=== PATIENT | female | born 1985 | race American Indian/Alaskan Native ===

== ENCOUNTER 2019-01-20 19:52 | Emergency (ER) | payer SELFPAY ==
[2019-01-20 19:57] VITALS: BP 150/78
--- NOTE | 2019-01-20 20:02 | Emergency Department Report ---
Blank Doc - Documentation Documentation: This is a 33-year-old female that presents with nausea with vomiting. Stated had a positive test today. Deneis any vaginal bleeding or pelvic pain. This initial assessment/diagnostic orders/clinical plan/treatment(s) is/are subject to change based on patient's health status, clinical progression and re- assessment by fellow clinical providers in the ED. Further treatment and workup at subsequent clinical providers discretion. Patient/guardians urged not to guy pe from the ED as their condition may be serious if not clinically assessed and managed. Initial orders include: 1- Patient sent to [facility] for further evaluation and treatment 2- labs 3- UA
[2019-01-20 20:42] LABS: BUN/Creatinine Ratio 10; Blood Urea Nitrogen 6 mg/dL (7-17); Calcium 9.2 mg/dL (8.4-10.2); Hemolysis Index 10
[2019-01-20 20:43] LABS: Basophils # (Auto) 0.1 K/mm3 (0.0-0.1); Basophils % (Auto) 0.8 % (0.0-1.8); Eosinophils # (Auto) 0.1 K/mm3 (0.0-0.4); Eosinophils % (Auto) 0.9 % (0.0-4.3); Hematocrit 33.3 % (30.3-42.9); Hemoglobin 11.3 gm/dl (10.1-14.3); Lymphocytes # (Auto) 2.3 K/mm3 (1.2-5.4); Lymphocytes % (Auto) 24.1 % (13.4-35.0); Mean Corpuscular HGB Conc 34 % (30-34); Mean Corpuscular Volume 85 fl (79-97); Monocytes # (Auto) 0.8 K/mm3 (0.0-0.8); Monocytes % (Auto) 8.7 % (0.0-7.3); Platelet Count 288 K/mm3 (140-440); Red Blood Count 3.93 M/mm3 (3.65-5.03); Red Cell Distribution Width 15.3 % (13.2-15.2)
[2019-01-20 21:59] LABS: Bilirubin,Urine NEG (Negative); Blood,Urine NEG (Negative); Color,Urine Yellow (Yellow); Protein,Urine <15 mg/dL mg/dL (Negative); Urobilinogen,Urine < 2.0 mg/dL (<2.0)
[2019-01-20] MEDS ORDERED: NACL 0.9% 1000 ML 1,000 ML IV ONE (23:49)
[2019-01-20] MEDS ORDERED: REGLAN IV ONE (23:49)
[2019-01-20] MEDS ORDERED: TYLENOL PO ONE (23:49)
[2019-01-21] MEDS ORDERED: BENADRYL IV ONE (01:19)
[2019-01-21] MEDS ORDERED: BENADRYL ONE (01:21)
--- NOTE | 2019-01-21 01:41 | Ultrasound Report ---
PROCEDURE: US OB <= 14 WEEKS FETUS TECHNIQUE: Real-time transabdominal sonography of the uterus, placenta, amniotic fluid, adnexa, and fetus was performed with image documentation. Measurements were obtained to determine age/size. M-mode Doppler was used to document heartbeat. ADDITIONAL GESTATION: None. HISTORY: pelvic pain COMPARISONS: None . FINDINGS: CRL: 32.7 mm, which corresponds to a gestational age of: 10 weeks, 1 days. Yolk Sac: Appropriate for gestational age. . Embryonic Cardiac Activity: 176 bpm . Gestational Sac: Size and shape are appropriate for gestational age Placenta: Normal Amniotic fluid: Appropriate for gestational age. Cervix: Normal. Right Ovary: Normal . Left Ovary: Normal . Estimated delivery date: 08/18/2019 . Uterus and adnexa: Normal. IMPRESSION: Single live intrauterine gestation at approximately 10 weeks 1 day . EDC by US 08/18/2019 . This document is electronically signed by Jayy Graham MD., January 21 2019 01:39:14 AM ET
--- NOTE | 2019-01-21 01:41 | Ultrasound Report ---
PROCEDURE: US OB TRANSVAGINAL TECHNIQUE: Real-time transvaginal sonography of the uterus, placenta, amniotic fluid, adnexa, and fe tus was performed with image documentation. Measurements were obtained to determine age/size. M -mode Doppler was used to document heartbeat. ADDITIONAL GESTATION: None. HISTORY: pelvic pain COMPARISONS: None . FINDINGS: CRL: 32.7 mm, which corresponds to a gestational age of: 10 weeks, 1 days. Yolk Sac: Appropriate for gestational age. . Embryonic Cardiac Activity: 176 bpm . Gestational Sac: Size and shape are appropriate for gestational age Placenta: Normal Amniotic fluid: Appropriate for gestational age. Cervix: Normal. Right Ovary: Normal . Left Ovary: Normal . Estimated delivery date: 08/18/2019 . Uterus and adnexa: Normal. IMPRESSION: Single live intrauterine gestation at approximately 10 weeks 1 day . EDC by US 08/18/2019 . This document is electronically signed by Jayy Graham MD., January 21 2019 01:39:43 AM ET
--- NOTE | 2019-01-21 02:14 | Emergency Department Report ---
ED N/V/D HPI - General Chief complaint: Nausea/Vomiting/Diarrhea Stated complaint: VOMITTING WITH BILE Time Seen by Provider: 01/20/19 20:00 Source: patient Mode of arrival: Ambulatory Limitations: No Limitations - History of Present Illness Initial comments: Patient is a A0 33-year-old, Female with No past Medical History and has gestational period is unknown presents to the ED with complaint of acute onset persistent intractable nausea and vomiting with intermittent lower abdominal pain for the last 3 weeks, worse in the last 2 days. Patient states that she has not been able to keep anything down the last 2 days. Patient denies vaginal bleeding, dysuria, urinary frequency and urgency, diarrhea, dizziness, fever, chills, no back pain, dizziness, headache, sore throat, chest pain or shortness of breath. MD complaint: nausea, vomiting, abdominal pain -: Gradual, week(s) (3) Description of Vomiting: food contents, watery Associated Abdominal Pain: No Location: diffuse Radiation: none Severity: severe Pain Scale: 7 Quality: cramping, aching Consistency: intermittent Improves with: none Worsens with: vomiting Associated Symptoms: denies other symptoms, malaise, nausea/vomiting. denies: myalgias, cough, diaphoresis, fever/chills, headaches, dysuria, shortness of breath, syncope, weakness - Related Data Previous Rx's Medication Instructions Recorded Last Taken Type Promethazine [Phenergan] 25 mg PO Q6HR PRN #30 tab 01/21/19 Unknown Rx Promethazine [Phenergan] 25 mg [place] Q6HR PRN #15 supp.rect 01/21/19 Unknown Rx Allergies Allergy/AdvReac Type Severity Reaction Status Date / Time No Known Allergies Allergy Verified 01/20/19 19:54 ED Review of Systems ROS: Stated complaint: VOMITTING WITH BILE Other details as noted in HPI Constitutional: denies: chills, fever Eyes: denies: eye pain, eye discharge, vision change ENT: denies: ear pain, throat pain Respiratory: denies: cough, shortness of breath, wheezing Cardiovascular: denies: chest pain, palpitations Endocrine: no symptoms reported Gastrointestinal: abdominal pain, nausea, vomiting. denies: diarrhea Genitourinary: denies: urgency, dysuria, discharge Musculoskeletal: denies: back pain, joint swelling, arthralgia Skin: denies: rash, lesions Neurological: denies: headache, weakness, paresthesias Psychiatric: denies: anxiety, depression Hematological/Lymphatic: denies: easy bleeding, easy bruising ED Past Medical Hx - Social History Smoking Status: Never Smoker Substance Use Type: None - Medications Home Medications: Home Medications Medication Instructions Recorded Confirmed Last Taken Type Promethazine [Phenergan] 25 mg PO Q6HR PRN #30 tab 01/21/19 Unknown Rx Promethazine [Phenergan] 25 mg [place] Q6HR PRN #15 supp.rect 01/21/19 Unknown Rx ED Physical Exam - General Limitations: No Limitations General appearance: alert, in no apparent distress - Head Head exam: Present: atraumatic, normocephalic, normal inspection - Eye Eye exam: Present: normal appearance, PERRL, EOMI Pupils: Present: normal accommodation - ENT ENT exam: Present: normal exam, normal orophraynx, mucous membranes moist, TM's normal bilaterally, normal external ear exam - Neck Neck exam: Present: normal inspection, full ROM. Absent: tenderness - Respiratory Respiratory exam: Present: normal lung sounds bilaterally. Absent: respiratory distress, wheezes, rales, stridor, chest wall tenderness, accessory muscle use, decreased breath sounds - Cardiovascular Cardiovascular Exam: Present: regular rate, normal rhythm, normal heart sounds. Absent: systolic murmur, diastolic murmur, rubs, gallop - GI/Abdominal GI/Abdominal exam: Present: soft, tenderness (mildly diffuse), normal bowel sounds. Absent: distended, hyperactive bowel sounds, hypoactive bowel sounds, organomegaly, bruit - Rectal Rectal exam: Present: deferred - Extremities Exam Extremities exam: Present: normal inspection, full ROM, normal capillary refill - Back Exam Back exam: Present: normal inspection, full ROM. Absent: tenderness, CVA tenderness (L), muscle spasm, paraspinal tenderness - Neurological Exam Neurological exam: Present: alert, oriented X3, CN II-XII intact, normal gait, reflexes normal - Psychiatric Psychiatric exam: Present: normal affect, normal mood - Skin Skin exam: Present: warm, dry, intact, normal color. Absent: rash ED Course Vital Signs 01/20/19 01/20/19 19:55 20:01 Temperature 98.7 F 98.7 F Pulse Rate 86 86 Respiratory 18 18 Rate Blood Pressure 150/78 150/78 O2 Sat by Pulse 100 100 Oximetry - Reevaluation(s) Reevaluation #1: 01/21/19 02:12 The patient is alert and oriented 3 and is not in distress with normal vital signs. Labs were drawn including urinalysis. Lab test results are unremarkable including urinalysis. Transvaginal and complete pelvic ultrasound shows a single IUP at approximately 10 weeks 1 day. The cardiac activity or 176 bpm. On reevaluation, patient passed a fluid challenge in the ED. Nausea and vomiting resolved in the ED. Patient was discharged home on antiemetics Phen ergan 25 mg by mouth, as well as Phenergan suppositories as needed for nausea and vomiting. Patient advised to take Tylenol orally for fever or pain as needed. Patient was advised to follow-up with [employer] physician in 2-3 days for reevaluation or return to the ED immediately if symptoms get worse. ED Medical Decision Making - Lab Data Result diagrams: 01/20/19 20:11 01/20/19 20:11 - Radiology Data Radiology results: report reviewed, image reviewed A single IUP of approximately 10 weeks and 1 day, with a heart rate of 176 bpm. No abnormal findings - Medical Decision Making The patient is alert and oriented 3 and is not in distress with normal vital signs. Labs were drawn including urinalysis. Lab test results are unremarkable including urinalysis. Transvaginal and complete pelvic ultrasound shows a single IUP at approximately 10 weeks 1 day. The cardiac activity or 176 bpm. On reevaluation, patient passed a fluid challenge in the ED. Nausea and vomiting resolved in the ED. Patient was discharged home on antiemetics Phenergan 25 mg by mouth, as well as Phenergan suppositories as needed for nausea and vomiting. Patient advised to take Tylenol orally for fever or pain as needed. Patient was advised to follow-up with [employer] physician in 2-3 days for reevaluation or return to the ED immediately if symptoms get worse. - Differential Diagnosis Hyperemesis Gravidarum; Abdominal pain in Critical care attestation.: If time is entered above; I have spent that time in minutes in the direct care of this critically ill patient, excluding procedure time. ED Disposition Clinical Impression: Hyperemesis gravidarum, Abdominal pain during in first trimester Disposition: DC-01 TO HOME OR SELFCARE Is pt being admited?: No Does the pt Need Aspirin: No Condition: Stable Instructions: Hyperemesis Gravidarum (ED), Abdominal Pain in (ED) Additional Instructions: Maintain a clear liquid diet for 12-24 hours, take medications for pain, drink plenty of fluids and follow up with your [employer] physician in 3-5 days for reevaluation. Return to the ED immediately if symptoms get worse. Prescriptions: Promethazine [Phenergan] 25 mg PO Q6HR PRN #30 tab PRN Reason: Nausea Promethazine [Phenergan] 25 mg [place] Q6HR PRN #15 supp.rect PRN Reason: Nausea Referrals: DEREK JORDAN MD [Staff Physician] - 3-5 Days Time of Disposition: 02:17 Print Language: NAMIBIAN
== END 2019-01-21 02:46 | disposition home or self-care (01) ==
LOC: ED 19:52
DX: O26.891 Other specified pregnancy related conditions, first trimester (principal); O21.0 Mild hyperemesis gravidarum; Z3A.10 10 weeks gestation of pregnancy
CPT/HCPCS: 36415; 76801; 76817; 80048; 81001; 84702; 85025; 96361; 96374; 96375; 99284; J1200; J2765; J7030